=== PATIENT | female | born 1985 | race Two or more races ===

== ENCOUNTER 2016-10-28 21:01 | Emergency (ER) | payer MEDICAID ==
[~2016-10-28] VITALS: Ht 160 cm; Wt 77.1 kg
[2016-10-28] MEDS ORDERED: PROVENTIL HFA6.7 GM INH (21:29)
[2016-10-28] MEDS ORDERED: XANAX1 MG PO (21:30)
== END 2016-10-28 22:55 | disposition short-term general hospital (02) ==
LOC: ER 21:01
DX: A60.00 Herpesviral infection of urogenital system, unspecified (principal); N39.0 Urinary tract infection, site not specified
CPT/HCPCS: J0696